=== PATIENT | female | born 1980 | race Caucasian/White ===

== ENCOUNTER → 2017-06-13 | Outpatient (CLI) | payer SELFPAY ==
[~2017-06-13] MED LIST: SYNTHROID,LEV112 MCG PO
[2017-06-13 15:02] LABS: FREE T4 1.42 ng/dl (0.76-1.46); THYROXINE (T4) TOTAL 13.8 ug/dl (4.8-13.9)
[2017-06-13 15:07] LABS: THYROID STIM HORMONE (HS) 0.388 uIU/ml (0.358-4.75)
== END | disposition home or self-care (01) ==
LOC: LAB 13:20
DX: Z13.89 Encounter for screening for other disorder (principal)